=== PATIENT | male | born 1970 ===

== ENCOUNTER 2025-05-01 05:24 | Day surgery (SDC) | payer OTHER ==
[2025-04-25 11:55] VITALS: BP 152/94
[~2025-05-01 05:24] MED LIST: MICARDIS40 MG
[2025-05-01] MEDS ORDERED: CEFAZOLIN SODIUM 1,000 MG VIAL ONE (06:25)
[2025-05-01] MEDS ORDERED: KETOROLAC TROMETHAMINE 30 MG VIAL ONE (07:09)
[2025-05-01] MEDS ORDERED: BUPIVACAINE HCL/MPF 0.5% 30ML VIAL ONE ×2 (07:09→08:31)
[2025-05-01] MEDS ORDERED: LIDOCAINE HCL 1%/EPINEPHRINE 20ML VIAL IJ ONE ×2 (07:09→08:31)
[2025-05-01] MEDS ORDERED: SUGAMMADEX SODIUM 200 MG/2 ML VIAL IV ONE (08:32)
[2025-05-01] MEDS ORDERED: ONDANSETRON HCL 2 MG/ML VIAL ONE (09:49)
== END 2025-05-01 10:35 | disposition home or self-care (01) ==
LOC: CIR.AMB 05:24
PROVIDERS: ATTEND Orthopaedic Surgery
DX: M75.121 Complete rotator cuff tear or rupture of right shoulder, not specified as traumatic (principal); M75.21 Bicipital tendinitis, right shoulder; M24.111 Other articular cartilage disorders, right shoulder